=== PATIENT | female | born 1975 | race African-American/Black ===

== ENCOUNTER 2020-09-09 17:18 | Emergency (ER) | payer OTHER ==
[~2020-09-09] VITALS: Ht 165.1 cm; Wt 49.9 kg
--- NOTE | ~2020-09-09 | EKG ---
[facility] [place] [address] ELECTROCARDIOGRAM REPORT Name: MILLI WILLINGHAM Room #: [facility]#: [id number] Admission: 09/09/20 Attend Phys: Discharge: Date of : 71 Report #: [id number] THIS REPORT FOR: cc: OPAL - No family physician/PCP FAM - No family physician/PCP Andrews Sparrow MD ~ THIS REPORT FOR: //name// [facility] ED Test Date: 2020-09-09 Test Time: 18:05:40 Pat Name: MILLI WILLINGHAM Department: Room: Gender: F Jackspooler: : 1975 Requested By: Beto Sanchez Order Number: [id number] MD: Measurements Intervals Doss Rate: 82 P: 69 CA: 116 QRS: 77 QRSD: 77 T: 45 QT: 398 QTc: 465 Interpretive Statements Sinus rhythm Borderline short CA interval Minimal ST depression, inferior leads Baseline wander in lead(s) II,III,aVF No previous ECG available for comparison [email or web address] By: 1805 1805 Epiphany EpiphanyMD /EPI
[2020-09-09] MEDS ORDERED: TRAMADOL 50 MG50 MG PO ×2 (19:21→20:43)
[2020-09-09] MEDS ORDERED: PRILOSEC OTC20 MG PO ×2 (19:21→20:43)
[2020-09-09] MEDS ORDERED: NAPROSYN500 MG PO ×2 (19:21→20:43)
[2020-09-09] MEDS ORDERED: NOHOMEMEDICATIONS (20:56)
[2020-09-09 20:58] VITALS: BP 103/62
== END 2020-09-09 20:57 | disposition home or self-care (01) ==
LOC: ER 17:18
DX: S83.92XA Sprain of unspecified site of left knee, initial encounter (principal); R07.9 Chest pain, unspecified; K21.9 Gastro-esophageal reflux disease without esophagitis; X50.1XXA Overexertion from prolonged static or awkward postures, initial encounter; Y93.89 Activity, other specified; Y92.89 Other specified places as the place of occurrence of the external cause; Y99.8 Other external cause status